=== PATIENT | male | born 1945 | race Caucasian/White ===

== ENCOUNTER 2020-06-01 14:33 | Inpatient (IN) | payer MEDICARE ==
[~2020-06-01] VITALS: Ht 177.8 cm; Wt 82.0 kg
[~2020-06-01 14:33] MED LIST: ACETAMINOPHEN PO; ALBU6.7H8 INH; ALBU8.5H5 INH; CHOL5000 PO; GEMF600T PO; LEVO200T5 PO; MOME13HF2 INH; MONT10TA6 PO; SUMA50TA4 PO; VERA120T13 PO
[2020-06-01] MEDS ORDERED: SODIUM CHLORIDE FLUSH 10ML SYR IVF ONE (15:00)
[2020-06-01] MEDS ORDERED: CLINDAMYCIN PMX 900MG/50ML 50 ML IVPB ONE (15:00)
[2020-06-01] MEDS ORDERED: SODIUM CHLORIDE 0.9% 1,000ML IVBOLUS ONE (15:00)
[2020-06-01 15:06] LABS: BASOPHILS % (AUTO) 1 % (0-1); EOSINOPHILS % (AUTO) 2 % (1-7); LYMPHOCYTES % (AUTO) 12 % (22-44); MEAN CORPUSCULAR HEMOGLOBIN 29.5 pg (27.5-34.5); MEAN CORPUSCULAR HGB CONC 33.3 g/dL (33.2-36.2); MEAN PLATELET VOLUME 7.4 fL (7.4-10.4); MONOCYTES % (AUTO) 6 % (2-9); NEUTROPHILS % (AUTO) 79 % (42-75); PLATELET COUNT 593 x10^3/uL (130-400); RED BLOOD COUNT 4.31 x10^6/uL (4.38-5.82); RED CELL DISTRIBUTION WIDTH 14.3 % (9.4-14.8)
[2020-06-01 15:08] LABS: MD NO
[2020-06-01 15:16] LABS: ALANINE AMINOTRANSFERASE 27 U/L (12-78); ALBUMIN 2.8 g/dL (3.4-5.0); ANION GAP 8 mmol/L (5-15); CALCIUM 9.6 mg/dL (8.5-10.1); CHLORIDE 106 mmol/L (98-107); CREATININE 1.22 mg/dL (0.7-1.3)
[2020-06-01 15:18] LABS: ALKALINE PHOSPHATASE 109 U/L (45-117); BILIRUBIN,TOTAL 0.4 mg/dL (0.2-1.0); TOTAL PROTEIN 8.4 g/dL (6.4-8.2)
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
[2020-06-01] MEDS ORDERED: LORazepam 2 MG/ML, 1ML ONE (15:53)
--- NOTE | 2020-06-01 15:57 | NUR ---
PT RETURN FROM RADIOLOGY. PT RESTLESS, "WANT TO GET UP" PULLING AT MONITORING EQUIPMENT. PT MEDICATED ORDERED. IV INFUSING WITHOUT REDNESS/SWELLING. PTS JAKI AND SON IN LAW LILIANA AT BEDSIDE. AWAITING ROOM ASSIGNMENT.
[2020-06-01] MEDS ORDERED: PIPERACILLIN/TAZO/PMX 3.375GM 50 ML IV ONE (16:00)
[2020-06-01] MEDS ORDERED: LORazepam 2 MG/ML, 1ML IV ONE (16:00)
[2020-06-01] MEDS ORDERED: PIPERACILLIN/TAZO/PMX 3.375GM 50 ML ONE (16:05)
[2020-06-01 16:19] LABS: HCT (SEDRATE) 36.7 % (39.2-51.8)
[2020-06-01] MEDS ORDERED: VANCOMYCIN PER PHARMACY MC PRN (17:00)
[2020-06-01] MEDS: NYSTATIN TOPICAL POWDER 15GM TP SCH ×2 (17:00→21:00)
[2020-06-01] MEDS: LACTOBACILLUS 1GM/ PACKET PO SCH ×2 (17:00→20:23)
[2020-06-01] MEDS ORDERED: ALBUTEROL SULFATE 2.5 MG/3 ML NPPB ONE (17:00)
--- NOTE | 2020-06-01 17:00 | NUR ---
PT WAKING UP SLOWLY, STARTING TO PULL AT MONITORING EQUIPMENT. IV'S COMPLETED INFUSING. PT WITH SOME THROAT WHEEZING. RA SAT 94-95%. LUNGS CLEAR. DISCUSSED WITH DR JONES. ORDER FOR RT TX RECEIVED.
--- NOTE | 2020-06-01 17:04 | NUR ---
REPORT TO DENEEN IQBAL.
[2020-06-01] MEDS ORDERED: LAMO25TA5 PO (17:19)
[2020-06-01] MEDS ORDERED: ALBUTEROL SULFATE 2.5 MG/3 ML ONE (17:22)
[2020-06-01] MEDS ORDERED: PHARMACY INSTRUCTION MC PRN (17:30)
[2020-06-01] MEDS ORDERED: INSTRUCTION SEE COMMENTS XX PRN (17:30)
[2020-06-01] MEDS ORDERED: PHARMACY MAY ADJ FOR RENAL FX MC PRN (17:30)
[2020-06-01 17:41] LABS: INTERNATIONAL NORMALIZED RATIO 1.09 (0.93-1.1); PROTHROMBIN TIME 11.6 Seconds (9.6-11.5)
--- NOTE | 2020-06-01 17:42 | NUR ---
PT RECEIVED RT VIA MASK. PT YAN WHILE HANDS ARE BEING HELD. DECREASED WHEEZING IN THROAT NOTED. FAMILY NOTIFED THAT PT TO BE TRANSFERED TO 377, NOTIFIED OF VISITING HOURS AND ONE DESIGNATED VISITOR. SITTER AT BEDSIDE.
[2020-06-01 17:53] LABS: % IRON SATURATION 9 % (20-55); IRON LEVEL 21 mcg/dL (65-175); TOTAL IRON BINDING CAPACITY 241 mcg/dL (250-450)
[2020-06-01] MEDS: ENOXAPARIN 40 MG/0.4 ML SQ SCH (18:00)
[2020-06-01] MEDS ORDERED: PHARMACOKINETIC MONITORING MC PRN (18:30)
[2020-06-01 19:13] VITALS: BP 144/56
[2020-06-01] MEDS: VANCOMYCIN 1,800 MG in SODIUM CHLORIDE 0.9% 250 ML IV SCH (20:13)
[2020-06-01] MEDS: SODIUM CHLORIDE 0.9% 1,000 ML IV SCH (20:13)
[2020-06-01] MEDS: MELATONIN 3 MG TABLET PO SCH (20:23)
[2020-06-01] MEDS ORDERED: MOMETASONE INH SCH (21:00)
[2020-06-01] MEDS ORDERED: FORMOTEROL INH SCH (21:00)
[2020-06-01] MEDS ORDERED: DONE5TAB7 PO (21:53)
[2020-06-01] MEDS ORDERED: DIPHENHYDRAMINE 50 MG/ML, 1ML IVPush ONE (23:00)
[2020-06-01] MEDS: FLUTICASONE/VILANTEROL 100-25MCG/INH INH SCH (23:21)
[2020-06-02] MEDS: PIPERACILLIN/TAZO/PMX 3.375GM 50 ML IV SCH ×3 (00:19→17:04)
[2020-06-02] MEDS: LEVOTHYROXINE 200 MCG TABLET PO SCH (04:41)
[2020-06-02] MEDS: SODIUM CHLORIDE 0.9% 1,000 ML IV SCH (06:21)
[2020-06-02] MEDS: VERAPAMIL 120MG TABLET PO SCH ×2 (09:00→11:16)
[2020-06-02] MEDS: DIVALPROEX 125 MG CAP.SPRINK PO SCH ×2 (09:00→11:16)
[2020-06-02] MEDS: LACTOBACILLUS 1GM/ PACKET PO SCH ×3 (09:00→20:36)
[2020-06-02 09:15] VITALS: BP 138/93
[2020-06-02] MEDS: FLUTICASONE/VILANTEROL 100-25MCG/INH INH SCH ×2 (09:30→20:31)
[2020-06-02] MEDS ORDERED: LORazepam 2 MG/ML, 1ML ONE (10:37)
[2020-06-02] MEDS ORDERED: LORazepam 2 MG/ML, 1ML IVPush ONE (11:00)
[2020-06-02] MEDS: NYSTATIN TOPICAL POWDER 15GM TP SCH ×3 (11:16→20:31)
[2020-06-02 11:44] LABS: ALBUMIN 2.6 g/dL (3.4-5.0); ANION GAP 5 mmol/L (5-15); CHLORIDE 113 mmol/L (98-107)
[2020-06-02 11:55] LABS: ALANINE AMINOTRANSFERASE 26 U/L (12-78); ALKALINE PHOSPHATASE 82 U/L (45-117); BILIRUBIN,TOTAL 0.5 mg/dL (0.2-1.0); CREATININE 1.23 mg/dL (0.7-1.3); TOTAL PROTEIN 7.1 g/dL (6.4-8.2)
[2020-06-02 12:26] LABS: BASOPHILS % (AUTO) 1 % (0-1); EOSINOPHILS % (AUTO) 3 % (1-7); LYMPHOCYTES % (AUTO) 12 % (22-44); MEAN CORPUSCULAR HEMOGLOBIN 29.7 pg (27.5-34.5); MEAN CORPUSCULAR HGB CONC 33.4 g/dL (33.2-36.2); MEAN PLATELET VOLUME 7.4 fL (7.4-10.4); MONOCYTES % (AUTO) 6 % (2-9); NEUTROPHILS % (AUTO) 80 % (42-75); PLATELET COUNT 577 x10^3/uL (130-400); RED BLOOD COUNT 4.01 x10^6/uL (4.38-5.82); RED CELL DISTRIBUTION WIDTH 14.5 % (9.4-14.8)
[2020-06-02 12:27] LABS: MD NO
[2020-06-02 12:56] VITALS: BP 131/67
[2020-06-02] MEDS: VANCOMYCIN 1,800 MG in SODIUM CHLORIDE 0.9% 250 ML IV SCH (13:52)
[2020-06-02] MEDS ORDERED: HALOPERIDOL 5 MG/ML IM PRN ×2 (14:00→14:30)
[2020-06-02] MEDS: ENOXAPARIN 40 MG/0.4 ML SQ SCH ×2 (18:00→18:36)
[2020-06-02 19:24] VITALS: BP 125/75
[2020-06-02] MEDS: MELATONIN 3 MG TABLET PO SCH (20:31)
[2020-06-03] MEDS: PIPERACILLIN/TAZO/PMX 3.375GM 50 ML IV SCH ×4 (00:54→22:45)
[2020-06-03] MEDS: LEVOTHYROXINE 200 MCG TABLET PO SCH (05:58)
[2020-06-03 06:59] LABS: BASOPHILS % (AUTO) 1 % (0-1); EOSINOPHILS % (AUTO) 2 % (1-7); LYMPHOCYTES % (AUTO) 12 % (22-44); MEAN CORPUSCULAR HEMOGLOBIN 29.4 pg (27.5-34.5); MEAN CORPUSCULAR HGB CONC 33.8 g/dL (33.2-36.2); MEAN PLATELET VOLUME 7.1 fL (7.4-10.4); MONOCYTES % (AUTO) 6 % (2-9); NEUTROPHILS % (AUTO) 79 % (42-75); PLATELET COUNT 587 x10^3/uL (130-400); RED BLOOD COUNT 3.97 x10^6/uL (4.38-5.82); RED CELL DISTRIBUTION WIDTH 14.5 % (9.4-14.8)
[2020-06-03 07:02] LABS: MD NO
[2020-06-03 07:13] LABS: ANION GAP 8 mmol/L (5-15); CHLORIDE 112 mmol/L (98-107); CREATININE 1.12 mg/dL (0.7-1.3)
[2020-06-03 07:31] VITALS: BP 155/79
[2020-06-03] MEDS: LACTOBACILLUS 1GM/ PACKET PO SCH ×3 (08:02→19:56)
[2020-06-03] MEDS: DIVALPROEX 125 MG CAP.SPRINK PO SCH (08:02)
[2020-06-03] MEDS: NYSTATIN TOPICAL POWDER 15GM TP SCH ×3 (08:02→19:56)
[2020-06-03] MEDS: VANCOMYCIN 1,800 MG in SODIUM CHLORIDE 0.9% 250 ML IV SCH (08:02)
[2020-06-03] MEDS: VERAPAMIL 120MG TABLET PO SCH (08:02)
[2020-06-03] MEDS: FLUTICASONE/VILANTEROL 100-25MCG/INH INH SCH ×2 (08:03→19:59)
[2020-06-03 13:08] VITALS: BP 157/78
[2020-06-03] MEDS ORDERED: PIPERACILLIN/TAZO/PMX 3.375GM 50 ML IV SCH (16:35)
[2020-06-03] MEDS: ENOXAPARIN 40 MG/0.4 ML SQ SCH (17:55)
[2020-06-03 19:31] VITALS: BP 168/74
[2020-06-03] MEDS: ACETAMINOPHEN 325 MG TABLET PO PRN (19:56)
[2020-06-03] MEDS: MELATONIN 3 MG TABLET PO SCH (19:56)
[2020-06-04] MEDS: LEVOTHYROXINE 200 MCG TABLET PO SCH (06:14)
[2020-06-04] MEDS: PIPERACILLIN/TAZO/PMX 3.375GM 50 ML IV SCH (06:14)
[2020-06-04] MEDS ORDERED: AMOXICILLIN/CLAV 875-125MG TABLET PO SCH (06:30)
[2020-06-04 07:56] VITALS: BP 150/89
[2020-06-04] MEDS: NYSTATIN TOPICAL POWDER 15GM TP SCH ×3 (09:00→21:17)
[2020-06-04 09:01] LABS: BASOPHILS % (AUTO) 1 % (0-1); EOSINOPHILS % (AUTO) 2 % (1-7); LYMPHOCYTES % (AUTO) 11 % (22-44); MEAN CORPUSCULAR HEMOGLOBIN 29.9 pg (27.5-34.5); MEAN CORPUSCULAR HGB CONC 33.9 g/dL (33.2-36.2); MONOCYTES % (AUTO) 7 % (2-9); NEUTROPHILS % (AUTO) 79 % (42-75); PLATELET COUNT 598 x10^3/uL (130-400); RED BLOOD COUNT 4.05 x10^6/uL (4.38-5.82); RED CELL DISTRIBUTION WIDTH 14.4 % (9.4-14.8)
[2020-06-04 09:04] LABS: MD NO
[2020-06-04 09:06] LABS: ANION GAP 9 mmol/L (5-15); CALCIUM 9.3 mg/dL (8.5-10.1); CHLORIDE 114 mmol/L (98-107); CREATININE 1.67 mg/dL (0.7-1.3)
[2020-06-04] MEDS: LACTOBACILLUS 1GM/ PACKET PO SCH ×3 (09:58→20:25)
[2020-06-04] MEDS: DIVALPROEX 125 MG CAP.SPRINK PO SCH (09:58)
[2020-06-04] MEDS: VERAPAMIL 120MG TABLET PO SCH (09:58)
[2020-06-04] MEDS: CLOTRIM/BETAMETH 1%/0.05% CRM TP SCH ×2 (09:59→21:17)
[2020-06-04] MEDS: FLUTICASONE/VILANTEROL 100-25MCG/INH INH SCH ×2 (10:00→20:24)
[2020-06-04 15:59] VITALS: BP 136/60
[2020-06-04] MEDS: AMOXICILLIN/CLAV. 400 MG/5 ML ORAL SUSP PO SCH (16:36)
[2020-06-04] MEDS: ENOXAPARIN 40 MG/0.4 ML SQ SCH (17:55)
[2020-06-04] MEDS: MELATONIN 3 MG TABLET PO SCH (20:25)
[2020-06-04] MEDS: LACTATED RINGERS 1,000 ML IV SCH (20:25)
[2020-06-04 20:34] VITALS: BP 154/72
[2020-06-05] MEDS: AMOXICILLIN/CLAV. 400 MG/5 ML ORAL SUSP PO SCH ×2 (03:35→15:33)
[2020-06-05] MEDS: LACTATED RINGERS 1,000 ML IV SCH ×2 (05:34→15:30)
[2020-06-05 05:47] VITALS: BP 123/62
[2020-06-05] MEDS: LEVOTHYROXINE 200 MCG TABLET PO SCH (06:14)
[2020-06-05] MEDS ORDERED: LORazepam 2 MG/ML, 1ML IVPush PRN (07:00)
[2020-06-05 08:42] LABS: ANION GAP 6 mmol/L (5-15); CALCIUM 9.1 mg/dL (8.5-10.1); CHLORIDE 114 mmol/L (98-107); CREATININE 1.36 mg/dL (0.7-1.3)
[2020-06-05] MEDS: LACTOBACILLUS 1GM/ PACKET PO SCH ×3 (09:25→20:32)
[2020-06-05] MEDS: VERAPAMIL 120MG TABLET PO SCH (09:26)
[2020-06-05] MEDS: CLOTRIM/BETAMETH 1%/0.05% CRM TP SCH ×2 (09:26→20:33)
[2020-06-05] MEDS: FLUTICASONE/VILANTEROL 100-25MCG/INH INH SCH ×2 (09:26→20:33)
[2020-06-05] MEDS: DIVALPROEX 125 MG CAP.SPRINK PO SCH (09:26)
[2020-06-05 09:27] VITALS: BP 166/99
[2020-06-05] MEDS: NYSTATIN TOPICAL POWDER 15GM TP SCH ×3 (09:27→20:33)
[2020-06-05] MEDS ORDERED: POTASSIUM CHLORIDE 40 MEQ in SODIUM CHLORIDE 0.9% 500 ML IV ONE (09:30)
[2020-06-05 12:56] VITALS: BP 149/81
[2020-06-05] MEDS: ACETAMINOPHEN 325 MG TABLET PO PRN ×2 (13:37→20:32)
[2020-06-05] MEDS: ENOXAPARIN 40 MG/0.4 ML SQ SCH (18:00)
[2020-06-05 19:44] VITALS: BP 138/77
[2020-06-05] MEDS: MELATONIN 3 MG TABLET PO SCH (20:32)
[2020-06-06] MEDS: LACTATED RINGERS 1,000 ML IV SCH ×2 (03:14→17:42)
[2020-06-06] MEDS: ACETAMINOPHEN 325 MG TABLET PO PRN ×3 (04:03→20:12)
[2020-06-06] MEDS: AMOXICILLIN/CLAV. 400 MG/5 ML ORAL SUSP PO SCH ×4 (04:04→17:42)
[2020-06-06] MEDS: LEVOTHYROXINE 200 MCG TABLET PO SCH ×2 (06:10→08:50)
[2020-06-06 06:41] VITALS: BP 132/61
[2020-06-06] MEDS: DIVALPROEX 125 MG CAP.SPRINK PO SCH (08:46)
[2020-06-06] MEDS: LACTOBACILLUS 1GM/ PACKET PO SCH ×3 (08:46→20:13)
[2020-06-06] MEDS: VERAPAMIL 120MG TABLET PO SCH (08:47)
[2020-06-06] MEDS: FLUTICASONE/VILANTEROL 100-25MCG/INH INH SCH ×2 (08:50→20:13)
[2020-06-06] MEDS: NYSTATIN TOPICAL POWDER 15GM TP SCH ×3 (08:51→20:13)
[2020-06-06] MEDS: CLOTRIM/BETAMETH 1%/0.05% CRM TP SCH ×2 (08:52→20:14)
[2020-06-06 09:37] LABS: ANION GAP 7 mmol/L (5-15); CALCIUM 9.5 mg/dL (8.5-10.1); CHLORIDE 116 mmol/L (98-107)
[2020-06-06 09:38] LABS: CREATININE 1.32 mg/dL (0.7-1.3)
[2020-06-06] MEDS: LAMOTRIGINE 25 MG TABLET PO SCH ×3 (11:55→20:13)
[2020-06-06] MEDS ORDERED: POTASSIUM CHLORIDE 40 MEQ in SODIUM CHLORIDE 0.9% 500 ML IV ONE (12:00)
[2020-06-06 12:51] VITALS: BP 158/88
[2020-06-06] MEDS: ENOXAPARIN 40 MG/0.4 ML SQ SCH (17:41)
[2020-06-06 18:45] VITALS: BP 131/82
[2020-06-06] MEDS: MELATONIN 3 MG TABLET PO SCH (20:13)
[2020-06-06] MEDS ORDERED: LAMOTRIGINE 25 MG TABLET PO SCH (21:00)
[2020-06-07] MEDS: AMOXICILLIN/CLAV. 400 MG/5 ML ORAL SUSP PO SCH (03:25)
[2020-06-07] MEDS: LEVOTHYROXINE 200 MCG TABLET PO SCH (05:31)
[2020-06-07 07:08] VITALS: BP 126/73
[2020-06-07 07:45] LABS: BASOPHILS % (AUTO) 1 % (0-1); EOSINOPHILS % (AUTO) 3 % (1-7); LYMPHOCYTES % (AUTO) 11 % (22-44); MEAN CORPUSCULAR HEMOGLOBIN 29.6 pg (27.5-34.5); MEAN CORPUSCULAR HGB CONC 33.4 g/dL (33.2-36.2); MONOCYTES % (AUTO) 6 % (2-9); NEUTROPHILS % (AUTO) 81 % (42-75); PLATELET COUNT 510 x10^3/uL (130-400); RED BLOOD COUNT 4.07 x10^6/uL (4.38-5.82); RED CELL DISTRIBUTION WIDTH 14.7 % (9.4-14.8)
[2020-06-07 07:50] LABS: MD NO
[2020-06-07] MEDS: LACTOBACILLUS 1GM/ PACKET PO SCH ×4 (09:10→19:59)
[2020-06-07] MEDS: LAMOTRIGINE 25 MG TABLET PO SCH ×3 (09:10→16:02)
[2020-06-07] MEDS: VERAPAMIL 120MG TABLET PO SCH ×2 (09:34→12:26)
[2020-06-07] MEDS: DIVALPROEX 125 MG CAP.SPRINK PO SCH (09:34)
[2020-06-07] MEDS: FLUTICASONE/VILANTEROL 100-25MCG/INH INH SCH ×3 (09:48→19:59)
[2020-06-07] MEDS: NYSTATIN TOPICAL POWDER 15GM TP SCH ×4 (09:57→20:00)
[2020-06-07] MEDS: CLOTRIM/BETAMETH 1%/0.05% CRM TP SCH ×2 (10:06→20:00)
[2020-06-07 12:56] VITALS: BP 123/68
[2020-06-07] MEDS: LACTATED RINGERS 1,000 ML IV SCH (14:37)
[2020-06-07 15:24] LABS: ANION GAP 5 mmol/L (5-15); CALCIUM 9.1 mg/dL (8.5-10.1); CHLORIDE 116 mmol/L (98-107)
[2020-06-07 15:25] LABS: CREATININE 1.36 mg/dL (0.7-1.3)
[2020-06-07] MEDS ORDERED: LAMOTRIGINE 25 MG TABLET ONE (15:58)
[2020-06-07] MEDS: ENOXAPARIN 40 MG/0.4 ML SQ SCH (17:46)
[2020-06-07 18:32] VITALS: BP 160/91
[2020-06-07] MEDS: MELATONIN 3 MG TABLET PO SCH (19:58)
[2020-06-07] MEDS ORDERED: LORazepam 2 MG/ML, 1ML IVPush PRN (22:30)
[2020-06-08 00:30] VITALS: BP 153/85
[2020-06-08] MEDS: LEVOTHYROXINE 200 MCG TABLET PO SCH (06:00)
[2020-06-08 06:17] LABS: BASOPHILS % (AUTO) 1 % (0-1); EOSINOPHILS % (AUTO) 3 % (1-7); LYMPHOCYTES % (AUTO) 15 % (22-44); MEAN CORPUSCULAR HEMOGLOBIN 29.2 pg (27.5-34.5); MEAN CORPUSCULAR HGB CONC 32.9 g/dL (33.2-36.2); MEAN PLATELET VOLUME 7.5 fL (7.4-10.4); MONOCYTES % (AUTO) 7 % (2-9); NEUTROPHILS % (AUTO) 75 % (42-75); PLATELET COUNT 498 x10^3/uL (130-400); RED CELL DISTRIBUTION WIDTH 14.6 % (9.4-14.8)
[2020-06-08 06:18] LABS: MD NO
[2020-06-08 06:26] LABS: ANION GAP 9 mmol/L (5-15); CALCIUM 9.2 mg/dL (8.5-10.1); CHLORIDE 116 mmol/L (98-107)
[2020-06-08 06:28] LABS: CREATININE 1.33 mg/dL (0.7-1.3)
[2020-06-08 07:08] VITALS: BP 181/71
[2020-06-08 07:14] VITALS: BP 175/79
[2020-06-08] MEDS: CLOTRIM/BETAMETH 1%/0.05% CRM TP SCH ×2 (09:16→20:25)
[2020-06-08] MEDS: NYSTATIN TOPICAL POWDER 15GM TP SCH ×3 (09:17→20:25)
[2020-06-08] MEDS: FLUTICASONE/VILANTEROL 100-25MCG/INH INH SCH ×3 (09:19→21:00)
[2020-06-08] MEDS: LACTOBACILLUS 1GM/ PACKET PO SCH ×3 (09:29→20:25)
[2020-06-08] MEDS: LAMOTRIGINE 25 MG TABLET PO SCH ×3 (09:30→22:27)
[2020-06-08] MEDS: VERAPAMIL 120MG TABLET PO SCH (09:35)
[2020-06-08] MEDS: POTASSIUM CHLORIDE 40 MEQ in SODIUM CHLORIDE 0.9% 500 ML IV SCH ×2 (10:40→20:22)
[2020-06-08] MEDS ORDERED: PVN PER PHARMACY MC PRN (12:00)
[2020-06-08 12:52] VITALS: BP 168/88
[2020-06-08] MEDS ORDERED: [UNRECOGNIZED DRUG - OTHER] IV SCH (17:00)
[2020-06-08] MEDS ORDERED: AMINO ACID 10% IV SCH (17:00)
[2020-06-08] MEDS ORDERED: FILTER, DISP 1.2 MICRON FOR TPN/PVN IV PRN (17:00)
[2020-06-08] MEDS ORDERED: FAT EMUL IV SCH (17:00)
[2020-06-08] MEDS ORDERED: DEXTROSE 70% IV SCH (17:00)
[2020-06-08] MEDS ORDERED: DEXTROSE 10% 500 ML IV PRN (17:00)
[2020-06-08] MEDS ORDERED: DEXTROSE 50%, 50ML SYRINGE IVPush PRN (17:00)
[2020-06-08] MEDS ORDERED: SMOF TPN IV SCH (17:00)
[2020-06-08] MEDS: ENOXAPARIN 40 MG/0.4 ML SQ SCH (17:49)
[2020-06-08] MEDS: MUPIROCIN OINT 2%, 22GM TP SCH (18:05)
[2020-06-08] MEDS: ACETAMINOPHEN 325 MG TABLET PO PRN (18:30)
[2020-06-08] MEDS ORDERED: LACTATED RINGERS 1,000 ML IV SCH (19:30)
[2020-06-08] MEDS: MELATONIN 3 MG TABLET PO SCH (20:24)
[2020-06-08 20:36] VITALS: BP 164/90
[2020-06-08] MEDS: INSULIN REGULAR MEDIUM DOSE Q6H X 48HRS SQ-INSULIN SCH (20:47)
[2020-06-09] MEDS: INSULIN REGULAR MEDIUM DOSE Q6H X 48HRS SQ-INSULIN SCH ×4 (03:00→20:34)
[2020-06-09] MEDS: LEVOTHYROXINE 200 MCG TABLET PO SCH (04:07)
[2020-06-09] MEDS: MUPIROCIN OINT 2%, 22GM TP SCH ×2 (04:15→17:06)
[2020-06-09] MEDS ORDERED: ALBUTEROL HFA 90 MCG/SPRAY INH PRN (06:30)
[2020-06-09 06:49] VITALS: BP 155/86
[2020-06-09 07:34] LABS: ALANINE AMINOTRANSFERASE 50 U/L (12-78); ALBUMIN 2.8 g/dL (3.4-5.0); ANION GAP 6 mmol/L (5-15); CALCIUM 9.3 mg/dL (8.5-10.1); CHLORIDE 114 mmol/L (98-107); CREATININE 1.39 mg/dL (0.7-1.3)
[2020-06-09 07:41] LABS: ALKALINE PHOSPHATASE 87 U/L (45-117); BILIRUBIN,TOTAL 0.2 mg/dL (0.2-1.0); PREALBUMIN 14.8 mg/dL (20.0-40.0); TOTAL PROTEIN 7.9 g/dL (6.4-8.2); TRIGLYCERIDES 177 mg/dL (50-200)
[2020-06-09] MEDS: LAMOTRIGINE 25 MG TABLET PO SCH ×2 (08:34→20:25)
[2020-06-09] MEDS: LACTOBACILLUS 1GM/ PACKET PO SCH ×3 (08:34→20:26)
[2020-06-09] MEDS: VERAPAMIL 120MG TABLET PO SCH (08:35)
[2020-06-09] MEDS: FLUTICASONE/VILANTEROL 100-25MCG/INH INH SCH ×2 (09:00→20:26)
[2020-06-09] MEDS: CLOTRIM/BETAMETH 1%/0.05% CRM TP SCH ×2 (09:00→20:26)
[2020-06-09] MEDS: POTASSIUM CHLORIDE 40 MEQ in SODIUM CHLORIDE 0.9% 500 ML IV SCH (09:00)
[2020-06-09] MEDS ORDERED: ASPIRIN 600 MG SUPP PR ONE ×2 (11:00)
[2020-06-09] MEDS: NYSTATIN TOPICAL POWDER 15GM TP SCH ×3 (11:12→20:26)
[2020-06-09 14:57] VITALS: BP 156/84
[2020-06-09] MEDS: ENOXAPARIN 40 MG/0.4 ML SQ SCH (16:57)
[2020-06-09] MEDS ORDERED: SMOF TPN IV SCH (17:00)
[2020-06-09] MEDS ORDERED: DEXTROSE 70% IV SCH (17:00)
[2020-06-09] MEDS ORDERED: FILTER, DISP 1.2 MICRON FOR TPN/PVN IV PRN ×2 (17:00)
[2020-06-09] MEDS ORDERED: [UNRECOGNIZED DRUG - OTHER] IV SCH (17:00)
[2020-06-09] MEDS ORDERED: FAT EMUL IV SCH (17:00)
[2020-06-09] MEDS ORDERED: AMINO ACID 10% IV SCH (17:00)
[2020-06-09 20:06] VITALS: BP 154/81
[2020-06-09] MEDS: MELATONIN 3 MG TABLET PO SCH (20:26)
[2020-06-10] MEDS: ACETAMINOPHEN 325 MG TABLET PO PRN (02:10)
[2020-06-10] MEDS: INSULIN REGULAR MEDIUM DOSE Q6H X 48HRS SQ-INSULIN SCH ×2 (02:22→09:00)
[2020-06-10] MEDS ORDERED: ASPIRIN 600 MG SUPP PR ONE (03:30)
[2020-06-10] MEDS: LEVOTHYROXINE 200 MCG TABLET PO SCH (04:07)
[2020-06-10] MEDS: MUPIROCIN OINT 2%, 22GM TP SCH ×2 (04:07→17:30)
[2020-06-10 05:50] LABS: ANION GAP 8 mmol/L (5-15); CALCIUM 9.3 mg/dL (8.5-10.1); CHLORIDE 110 mmol/L (98-107); CREATININE 1.35 mg/dL (0.7-1.3)
[2020-06-10 08:18] VITALS: BP 155/95
[2020-06-10] MEDS: LACTOBACILLUS 1GM/ PACKET PO SCH ×3 (08:21→20:14)
[2020-06-10] MEDS: LAMOTRIGINE 25 MG TABLET PO SCH ×2 (08:22→20:14)
[2020-06-10] MEDS: VERAPAMIL 120MG TABLET PO SCH (08:22)
[2020-06-10] MEDS: NYSTATIN TOPICAL POWDER 15GM TP SCH ×3 (09:00→20:15)
[2020-06-10] MEDS: FLUTICASONE/VILANTEROL 100-25MCG/INH INH SCH (09:00)
[2020-06-10] MEDS: CLOTRIM/BETAMETH 1%/0.05% CRM TP SCH ×2 (09:00→20:14)
[2020-06-10 13:47] VITALS: BP 133/72
[2020-06-10] MEDS ORDERED: FILTER, DISP 1.2 MICRON FOR TPN/PVN IV PRN (17:00)
[2020-06-10] MEDS ORDERED: DEXTROSE 70% IV SCH (17:00)
[2020-06-10] MEDS ORDERED: FAT EMUL IV SCH (17:00)
[2020-06-10] MEDS ORDERED: [UNRECOGNIZED DRUG - OTHER] IV SCH (17:00)
[2020-06-10] MEDS ORDERED: AMINO ACID 10% IV SCH (17:00)
[2020-06-10] MEDS ORDERED: SMOF TPN IV SCH (17:00)
[2020-06-10] MEDS: ENOXAPARIN 40 MG/0.4 ML SQ SCH (17:09)
[2020-06-10 19:10] VITALS: BP 113/87
[2020-06-10] MEDS: MELATONIN 3 MG TABLET PO SCH (20:14)
[2020-06-11 02:36] VITALS: BP 159/94
[2020-06-11] MEDS: ACETAMINOPHEN 325 MG TABLET PO PRN (04:29)
[2020-06-11 05:20] LABS: ANION GAP 9 mmol/L (5-15); CALCIUM 9.5 mg/dL (8.5-10.1); CHLORIDE 107 mmol/L (98-107); CREATININE 1.54 mg/dL (0.7-1.3)
[2020-06-11] MEDS: LEVOTHYROXINE 200 MCG TABLET PO SCH (05:50)
[2020-06-11] MEDS: MUPIROCIN OINT 2%, 22GM TP SCH ×2 (05:50→16:06)
[2020-06-11 07:53] VITALS: BP 151/87
[2020-06-11] MEDS: VERAPAMIL 120MG TABLET PO SCH (08:04)
[2020-06-11] MEDS: LACTOBACILLUS 1GM/ PACKET PO SCH ×3 (08:04→21:00)
[2020-06-11] MEDS: LAMOTRIGINE 25 MG TABLET PO SCH ×2 (08:04→21:01)
[2020-06-11] MEDS: FLUTICASONE/VILANTEROL 100-25MCG/INH INH SCH (08:25)
[2020-06-11] MEDS ORDERED: INSULIN REGULAR MEDIUM DOSE QDAY SQ-INSULIN SCH (09:00)
[2020-06-11] MEDS: NYSTATIN TOPICAL POWDER 15GM TP SCH ×3 (09:00→21:01)
[2020-06-11] MEDS: CLOTRIM/BETAMETH 1%/0.05% CRM TP SCH ×2 (09:00→21:06)
[2020-06-11 13:44] VITALS: BP 127/78
[2020-06-11] MEDS ORDERED: ASPIRIN 300 MG SUPP PR ONE (15:00)
[2020-06-11] MEDS ORDERED: ASPIRIN 600 MG SUPP PR ONE (15:00)
[2020-06-11] MEDS: ENOXAPARIN 40 MG/0.4 ML SQ SCH (18:00)
[2020-06-11 20:20] VITALS: BP 113/76
[2020-06-11] MEDS: MELATONIN 3 MG TABLET PO SCH (21:00)
[2020-06-12 00:09] VITALS: BP 149/117
[2020-06-12 03:51] VITALS: BP 139/82
[2020-06-12] MEDS: MUPIROCIN OINT 2%, 22GM TP SCH ×2 (05:43→16:54)
[2020-06-12] MEDS: LEVOTHYROXINE 200 MCG TABLET PO SCH (05:43)
[2020-06-12 07:05] VITALS: BP 139/77
[2020-06-12] MEDS: LACTOBACILLUS 1GM/ PACKET PO SCH ×4 (09:48→20:45)
[2020-06-12] MEDS: LAMOTRIGINE 25 MG TABLET PO SCH ×2 (09:48→20:28)
[2020-06-12] MEDS: VERAPAMIL 120MG TABLET PO SCH (09:49)
[2020-06-12] MEDS: NYSTATIN TOPICAL POWDER 15GM TP SCH ×3 (09:49→20:35)
[2020-06-12] MEDS: CLOTRIM/BETAMETH 1%/0.05% CRM TP SCH ×2 (09:49→20:35)
[2020-06-12 13:06] VITALS: BP 134/75
[2020-06-12] MEDS ORDERED: BISACODYL 10 MG SUPP PR PRN (16:30)
[2020-06-12] MEDS: ENOXAPARIN 40 MG/0.4 ML SQ SCH (17:22)
[2020-06-12 18:44] VITALS: BP 136/75
[2020-06-12] MEDS: DOCUSATE 50 MG/5 ML, 10ML UDC PO SCH (20:28)
[2020-06-12] MEDS: MELATONIN 3 MG TABLET PO SCH (20:29)
[2020-06-13] MEDS: LEVOTHYROXINE 200 MCG TABLET PO SCH (06:00)
[2020-06-13] MEDS: MUPIROCIN OINT 2%, 22GM TP SCH (06:00)
[2020-06-13 07:45] VITALS: BP 113/75
[2020-06-13] MEDS: LAMOTRIGINE 25 MG TABLET PO SCH (08:08)
[2020-06-13] MEDS: VERAPAMIL 120MG TABLET PO SCH (08:08)
[2020-06-13] MEDS: DOCUSATE 50 MG/5 ML, 10ML UDC PO SCH (08:08)
[2020-06-13] MEDS: LACTOBACILLUS 1GM/ PACKET PO SCH (08:08)
[2020-06-13] MEDS: CLOTRIM/BETAMETH 1%/0.05% CRM TP SCH (08:11)
[2020-06-13] MEDS: NYSTATIN TOPICAL POWDER 15GM TP SCH (08:11)
[2020-06-13 13:12] VITALS: BP 134/64
== END 2020-06-13 15:43 | disposition hospice, home (50) | DRG 602 ==
LOC: ED 15:38 → EDIP 15:39 → ED 15:44 → 3N 17:56
PROVIDERS: ADMIT Internal Medicine; ATTEND Internal Medicine
DX: L03.116 Cellulitis of left lower limb (principal); G93.41 Metabolic encephalopathy; N17.0 Acute kidney failure with tubular necrosis; E44.0 Moderate protein-calorie malnutrition; E87.0 Hyperosmolality and hypernatremia; F03.91 Unspecified dementia, unspecified severity, with behavioral disturbance; D64.9 Anemia, unspecified; E78.5 Hyperlipidemia, unspecified; E86.0 Dehydration; E86.1 Hypovolemia; G43.909 Migraine, unspecified, not intractable, without status migrainosus; I10 Essential (primary) hypertension; R13.10 Dysphagia, unspecified; Z51.5 Encounter for palliative care; Z66 Do not resuscitate; G89.29 Other chronic pain; K21.9 Gastro-esophageal reflux disease without esophagitis; M54.9 Dorsalgia, unspecified; Z87.442 Personal history of urinary calculi; Z87.891 Personal history of nicotine dependence; Z78.1 Physical restraint status; Z88.8 Allergy status to other drugs, medicaments and biological substances; Z68.25 Body mass index [BMI] 25.0-25.9, adult; D72.829 Elevated white blood cell count, unspecified
CPT/HCPCS: 36415; 70450; 71045; 80048; 80053; 80202; 82140; 82607; 82962; 83540; 83550; 83605; 83735; 84100; 84134; 84145; 84443; 84478; 85025; 85610; 85651; 87040; 87070; 87147; 87205; 93005; 93922; 96374; 99285; G0378; J0610; J1644; J1650; J2543; J3370; J3475; J3480; J7613; J1200; J1630; J1720; J2060; J3420; J7030; J7040; J7050; J7120